=== PATIENT | male | born 1945 | race African-American/Black ===

== ENCOUNTER 2016-12-15 16:30 | Emergency (ER) | payer MEDICARE, BC, OTHER ==
[~2016-12-15] VITALS: Ht 175.3 cm; Wt 65.0 kg
[2016-12-15 16:51] VITALS: BP 176/101; PULSE 80; RESP 16; TEMP 97; O2SAT 100
--- NOTE | 2016-12-15 17:40 | PD ---
HPI Chief Complaint: Abnormal Results Time Seen by Provider: 17:40 Travel History International Travel<30 days: No Contact w/Intl Traveler<30days: No Traveled to known affect area: No History of Present Illness HPI 71-year-old Afro-Turkish male with history of HIV presents to the emergency department after being seen by his primary care physician, Dr. Siddiqi, and had an EKG performed. Patient presented to his primary care physician after having several days of hacking cough and tickle in his throat. His PCP performed an EKG showing no LVH and frequent PVCs which concerned him. The patient denies any specific chest pain or shortness of breath. Patient does states that he tickling cough since Monday which is worsened in the last 2 days. Patient does have some postnasal drip from allergies but denies headache, fever, sore throat , or ear pain. Patient states his cough is nonproductive. He does not feel wheezy or short of breath. He states his cough improves if he has a cough drop. Patient does have a history of reflux, which goes untreated as he does not want medications for to affect his meds for HIV. Patient has been compliant with his HIV meds and is viral load is undetectable for many years. Patient has no history of pneumonia or bronchitis, however he has used an inhaler in the distant past. Patient currently has no chest pain or shortness of breath. He does however has a dry hacking cough from time to time. He is allergic to penicillin. PFSH Past Medical History Cardiovascular Problems: Yes Social History Alcohol Use: Yes Tobacco Use: Yes Substance Use: No Allergies-Medications (Allergen,Severity, Reaction): Coded Allergies: Penicillin (Verified Allergy, Unknown, 12/15/16) Review of Systems Except as stated in HPI: all other systems reviewed are Neg General / Constitutional: No: Fever, Chills Eyes: No: Visual changes HENT: No: Headaches Cardiovascular: No: Chest Pain or Discomfort Respiratory: Positive: Cough, No: Shortness of Breath Gastrointestinal: No: Nausea, Vomiting, Diarrhea, Abdominal Pain Genitourinary: No: Dysuria Musculoskeletal: No: Pain Skin: No Rash Neurologic: No: Weakness Psychiatric: No: Depression Endocrine: No: Polydipsia Hematologic/Lymphatic: No: Easy Bruising Physical Exam Narrative GENERAL: Patient appears in no acute distress. SKIN: Warm and dry. Normal color. Normal turgor. HEAD: Atraumatic. Normocephalic. No sinus tenderness to palpation or percussion. EYES: Pupils equal and round. No scleral icterus. No injection or drainage. ENT: No nasal bleeding or discharge. Mucous membranes pink and moist. TMs are clear bilaterally. Patient has clear rhinitis. Posterior pharynx appears unremarkable. No significant nasal drip is observed. NECK: Trachea midline. No JVD. Neck is supple nontender. CARDIOVASCULAR: Regular rate and rhythm. No murmurs gallops or rubs appreciated. RESPIRATORY: No accessory muscle use. Clear to auscultation. Breath sounds equal bilaterally. GASTROINTESTINAL: Abdomen soft, non-tender, nondistended. Hepatic and splenic margins not palpable. MUSCULOSKELETAL: Extremities without clubbing, cyanosis, or edema. No obvious deformities. NEUROLOGICAL: Awake and alert. No obvious cranial nerve deficits. Motor grossly within normal limits. Five out of 5 muscle strength in the arms and legs. Normal speech. PSYCHIATRIC: Appropriate mood and affect; insight and judgment normal. Data Data Last Documented VS Vital Signs Date Time Temp Pulse Resp B/P Pulse Ox O2 Delivery O2 Flow Rate FiO2 12/15/16 19:18 89 15 98 Room Air 12/15/16 19:17 168/97 12/15/16 16:51 97.0 Orders Complete Blood Count With Diff (12/15/16 17:40) Comprehensive Metabolic Panel (12/15/16 17:40) B-Type Natriuretic Peptide (12/15/16 17:40) Act Partial Throm Time (Ptt) (12/15/16 17:40) Prothrombin Time / Inr (Pt) (12/15/16 17:40) Ckmb (Isoenzyme) Profile (12/15/16 17:40) Troponin I (12/15/16 17:40) Iv Access Insert/Monitor (12/15/16 17:40) Electrocardiogram (12/15/16 17:40) Ecg Monitoring (12/15/16 17:40) Oximetry (12/15/16 17:40) Oxygen Administration (12/15/16 17:40) Chest, Single Ap (12/15/16 17:40) Sodium Chloride 0.9% Flush (Ns Flush) (12/15/16 17:45) Albuterol-Ipratropium Neb (Duoneb Neb) (12/15/16 17:45) CKMB (12/15/16 18:45) CKMB% (12/15/16 18:45) Troponin I (12/15/16 20:23) Diet Heart Healthy (12/16/16 Dinner) Labs Laboratory Tests Test 12/15/16 12/15/16 18:45 21:30 White Blood Count 9.1 TH/MM3 Red Blood Count 4.74 MIL/MM3 Hemoglobin 14.4 GM/DL Hematocrit 42.4 % Mean Corpuscular Volume 89.5 FL Mean Corpuscular Hemoglobin 30.3 PG Mean Corpuscular Hemoglobin 33.9 % Concent Red Cell Distribution Width 13.7 % Platelet Count 331 TH/MM3 Mean Platelet Volume 6.8 FL Neutrophils (%) (Auto) 67.3 % Lymphocytes (%) (Auto) 22.2 % Monocytes (%) (Auto) 8.3 % Eosinophils (%) (Auto) 1.4 % Basophils (%) (Auto) 0.8 % Neutrophils # (Auto) 6.1 TH/MM3 Lymphocytes # (Auto) 2.0 TH/MM3 Monocytes # (Auto) 0.7 TH/MM3 Eosinophils # (Auto) 0.1 TH/MM3 Basophils # (Auto) 0.1 TH/MM3 CBC Comment DIFF FINAL Differential Comment Prothrombin Time 10.4 SEC Prothromb Time International 0.9 RATIO Ratio Activated Partial 28.3 SEC Thromboplast Time Sodium Level 141 MEQ/L Potassium Level 4.0 MEQ/L Chloride Level 105 MEQ/L Carbon Dioxide Level 28.6 MEQ/L Anion Gap 7 MEQ/L Blood Urea Nitrogen 12 MG/DL Creatinine 1.52 MG/DL Estimat Glomerular Filtration 55 ML/MIN Rate Random Glucose 93 MG/DL Calcium Level 8.9 MG/DL Total Bilirubin 0.3 MG/DL Aspartate Amino Transf 18 U/L (AST/SGOT) Alanine Aminotransferase 23 U/L (ALT/SGPT) Alkaline Phosphatase 53 U/L Total Creatine Kinase 131 U/L Creatine Kinase MB 0.6 NG/ML Troponin I LESS THAN 0.02 LESS THAN 0.02 NG/ML NG/ML B-Type Natriuretic Peptide 9 PG/ML Total Protein 8.2 GM/DL Albumin 3.5 GM/DL [facility] Medical Decision Making Medical Screen Exam Complete: Yes Emergency Medical Condition: Yes Differential Diagnosis Dry cough. Postnasal drip. Cardiac syndrome. PVCs. Arrhythmia. Narrative Course Patient is medically stable at time of exam. Labs ordered include CBC, CMP, proBNP, and cardiac panel. EKG is ordered as well as chest x-ray. Patient is given a DuoNeb 1. EKG shows normal sinus rhythm without significant changes. This is reviewed with Dr. Mc. Chest x-ray is clear for any acute process per radiologist. CBC, CMP, cardiac panel is normal. ProBNP is 9. Findings are discussed with the patient. Patient was discussed with Dr. rL feels second cardiac enzyme set would be sufficient to rule out RI considering the patient's stable EKG and other labs at this time. Repeat troponin is drawn at 2130 hrs. Repeat troponin was also less than 0.02. Patient is felt stable to be discharged home. Patient given a prescription for Flonase nasal spray 2 sprays each nostril daily. Patient also given Tessalon Perles 100 milligrams one every 8 hours when necessary cough. Patient is to follow with his primary physician, and referral to cardiology on an outpatient basis. Patient can return to the emergency department with worsening symptoms as needed. Diagnosis Primary Impression: Cough in adult Additional Impressions: Post-nasal drainage Hypertension Qualified Code: I10 - Essential hypertension Referrals: Primary Care Physician Patient Instructions: General Instructions Additional Instructions: EKG shows normal sinus rhythm without significant changes. Chest x-ray is clear for any acute process per radiologist. CBC, CMP, cardiac panel is normal. ProBNP is 9. Findings are discussed with the patient. Patient was discussed with Dr. Lr feels second cardiac enzyme set would be sufficient to rule out RI considering the patient's stable EKG and other labs at this time. Repeat troponin is drawn at 2130 hrs. Repeat troponin was also less than 0.02. Patient is felt stable to be discharged home. Patient given a prescription for Flonase nasal spray 2 sprays each nostril daily. Patient also given Tessalon Perles 100 milligrams one every 8 hours when necessary cough. Patient is to follow with his primary physician, and referral to cardiology on an outpatient basis. Patient can return to the emergency department with worsening symptoms as needed. Med/Other Pt SpecificInfo: Prescription(s) given Disposition: DISCHARGE HOME Condition: Stable Brendan Evans Dec 15, 2016 17:40
[2016-12-15] MEDS ORDERED: RESP: ALBUTEROL 2.5 MG/IPRATROPIUM 0.5 MG NEB (SCH) INH ONE (17:45)
[2016-12-15] MEDS ORDERED: SODIUM CHLORIDE 0.9% FLUSH 10 ML FLUSH IVF PRN (17:45)
[2016-12-15 17:49] VITALS: BP 179/95; PULSE 92; RESP 20; O2SAT 100
--- NOTE | 2016-12-15 18:00 | RADRPT ---
EXAM DATE/TIME: 12/15/2016 17:49 [facility] COMPARISON: No previous studies available for comparison. INDICATIONS : Short of breath MEDICAL HISTORY : Hypertension. SURGICAL HISTORY : None. ENCOUNTER: Initial ACUITY: 1 day PAIN SCORE: 0/10 LOCATION: Bilateral chest FINDINGS: The lungs are clear without infiltrate, nodule, or mass. There is no appreciable pleural effusion fo r technique. Heart and mediastinum are unremarkable. CONCLUSION: No acute cardiopulmonary disease. Sindhu Johnson MD on December 15, 2016 at 17:58 Board Certified Radiologist. This report was verified electronically.
[2016-12-15 19:01] LABS: AUTOMATED NEUTROPHIL # 6.1 TH/MM3 (1.8-7.7); BASOPHIL # 0.1 TH/MM3 (0-0.2); BASOPHIL % 0.8 % (0.0-2.0); EOSINOPHIL # 0.1 TH/MM3 (0-0.4); EOSINOPHIL % 1.4 % (0.0-4.0); HEMATOCRIT 42.4 % (39.0-51.0); HEMO FLAGS DIFF FINAL; LYMPH % 22.2 % (9.0-44.0); MEAN CELL VOLUME 89.5 FL (80.0-100.0); MEAN CORPUSCULAR HEMOGLOBIN 30.3 PG (27.0-34.0); MEAN CORPUSCULAR HGB CONC 33.9 % (32.0-36.0); MONO % 8.3 % (0.0-8.0); NEUT % 67.3 % (16.0-70.0); PLATELET COUNT 331 TH/MM3 (150-450); RED BLOOD COUNT 4.74 MIL/MM3 (4.50-5.90); RED CELL DISTRIBUTION WIDTH 13.7 % (11.6-17.2); WHITE BLOOD COUNT 9.1 TH/MM3 (4.0-11.0)
[2016-12-15 19:17] VITALS: BP 168/97; PULSE 96; RESP 15; O2SAT 98
[2016-12-15 19:18] LABS: ANION GAP 7 MEQ/L (5-15); AST (GOT) 18 U/L (15-37); BICARBONATE 28.6 MEQ/L (21.0-32.0); BLOOD UREA NITROGEN 12 MG/DL (7-18); CHLORIDE 105 MEQ/L (98-107); GLOMERULAR FILTRATION RATE 55 ML/MIN (>89); SODIUM (NA) 141 MEQ/L (136-145)
[2016-12-15 19:23] LABS: ALKALINE PHOSPHATASE 53 U/L (45-117); ALT (GPT) 23 U/L (12-78); CREATINE KINASE 131 U/L (39-308); TOTAL BILIRUBIN ADULT 0.3 MG/DL (0.2-1.0)
[2016-12-15 19:27] LABS: APTT (PATIENT) 28.3 SEC (24.3-30.1); INTERNATIONAL NORMALIZED RATIO 0.9 RATIO; PROTHROMBIN TIME - PATIENT 10.4 SEC (9.8-11.6)
[2016-12-15 19:36] LABS: CKMB 0.6 NG/ML (0.5-3.6)
[2016-12-15] MEDS ORDERED: BENZ100 PO (22:15)
[2016-12-15] MEDS ORDERED: FLUT1SPR9 EACH NARE (22:15)
--- NOTE | 2016-12-16 19:34 | EKG ---
Date Performed: 12/15/2016 Time Performed: 18:40:30 PTAGE: 71 years EKG: Sinus rhythm Compared to prior tracing no significant change NORMAL ECG PREVIOUS TRACING : 02/05/2013 10.44 DOCTOR: Uday Nix Interpretating Date/Time 12/16/2016 19:32:33
== END 2016-12-15 23:39 | disposition home or self-care (01) ==
LOC: NEPE 16:30
DX: R05 Cough (principal); I10 Essential (primary) hypertension; Z72.0 Tobacco use; R09.82 Postnasal drip
CPT/HCPCS: 71010; 80053; 82550; 82552; 83880; 84484; 85025; 85610; 85730; 93005; 94664